=== PATIENT | male | born 1995 | race Caucasian/White ===

== ENCOUNTER 2017-11-19 11:38 | Emergency (ER) | payer BC ==
[2017-11-19 14:01] VITALS: BP 109/63
--- NOTE | 2017-11-19 14:38 | UC ---
Respiratory Complaint HPI - HPI Summary HPI Summary: Cough and congestion for about three weeks. He has a hx of asthma in the past. At night he is having chest tightness and pressure. his girlfriend's albuterol did help. No fever. Cough is productive at times. - History of Current Complaint Chief Complaint: UCGeneralIllness Stated Complaint: CONGESTION WHEEZING Time Seen by Provider: 11/19/17 14:25 Hx Obtained From: Patient Onset/Duration: Sudden Onset, Lasting Weeks Timing: Constant Severity Initially: Moderate Severity Currently: Moderate Character: Cough: Productive Aggravating Factors: Deep Breaths, Recumbent Position Alleviating Factors: Bronchodilator Associated Signs And Symptoms: Positive: Dyspnea, Wheezing, URI, Nasal Congestion. Negative: Fever, Chills, Hemoptysis, Dizziness, Calf Pain, Calf Swelling - Allergies/Home Medications Allergies/Adverse Reactions: Allergies Allergy/AdvReac Type Severity Reaction Status Date / Time No Known Allergies Allergy Verified 11/19/17 14:00 PMH/Surg Hx/FS Hx/Imm Hx Previously Healthy: No - asthma. - Surgical History Surgical History: None - Family History Known Family History: Positive: Other - related bronchitis history. - Social History Occupation: Employed Full-time Alcohol Use: Occasionally Substance Use Type: None Smoking Status (MU): Former Smoker - Immunization History Most Recent Influenza Vaccination: NOT CURRENT Review of Systems ENT: Sinus Congestion Respiratory: Cough All Other Systems Reviewed And Are Negative: Yes Physical Exam Triage Information Reviewed: Yes Appearance: Well-Appearing, No Pain Distress, Well-Nourished Vital Signs: Initial Vital Signs Temp 98.2 F 11/19/17 13:55 Pulse 66 11/19/17 13:55 Resp 18 11/19/17 13:55 BP 109/63 11/19/17 13:55 Pulse Ox 99 11/19/17 13:55 Vital Signs Reviewed: Yes Eyes: Positive: Conjunctiva Clear. Negative: Conjunctiva Inflamed ENT: Positive: Pharynx normal, Nasal congestion, TMs normal. Negative: Pharyngeal erythema, TM bulging, TM dull, TM red, Tonsillar swelling, Tonsillar exudate, Trismus, Muffled voice Neck: Positive: Supple, Nontender, No Lymphadenopathy Respiratory: Positive: Lungs clear, Normal breath sounds, No respiratory distress, No accessory muscle use. Negative: Respiratory distress, Decreased breath sounds, Accessory muscle use, Crackles, Rhonchi, Stridor, Wheezing Cardiovascular: Positive: No Murmur, Pulses Normal, Brisk Capillary Refill Abdomen Description: Positive: Nontender, No Organomegaly. Negative: Distended , Guarding Musculoskeletal: Positive: Strength Intact, ROM Intact, No Edema Neurological: Positive: Alert, Muscle Tone Normal. Negative: Fatigued Skin: Negative: rashes UC Diagnostic Evaluation - Laboratory O2 Sat by Pulse Oximetry: 99 Respiratory Course/Dx - Differential Dx/Diagnosis Provider Diagnoses: bronchitis with reactive airway disease. Discharge - Discharge Plan Condition: Good Disposition: HOME Prescriptions: Albuterol HFA INHALER* [Ventolin HFA Inhaler*] 1 - 2 puff INH Q4H PRN #1 mdi PRN Reason: Cough Azithromyxin BELGICA (NF) [Z-Belgica (Zithromax) 250 mg tabs #6] 2 tab PO .TODAY, THEN 1 DAILY #6 tab Methylprednisolone [Medrol Dosepak 4 MG*] 4 mg PO .SEE BELGICA INSTRUCTION #21 tab Spacer/Aerosol-Holding Chamber [Aerochamber Mv] 1 mis XX QID PRN #1 mis PRN Reason: Cough Patient Education Materials: Reactive Airways Disease (ED), Acute Bronchitis ( ED) Referrals: No Primary Care Phys,NOPCP [Primary Care Provider] - Additional Instructions: REturn here for any worsening.
== END 2017-11-19 14:52 | disposition home or self-care (01) ==
LOC: UCCORT 11:38
DX: J45.909 Unspecified asthma, uncomplicated (principal); Z79.899 Other long term (current) drug therapy; Z87.891 Personal history of nicotine dependence
CPT/HCPCS: 99202; G0463

== ENCOUNTER 2019-01-04 11:01 | Emergency (ER) | payer BC ==
[2019-01-04 12:03] VITALS: BP 148/79
--- NOTE | 2019-01-04 12:04 | UC ---
Eye Complaint HPI - HPI Summary HPI Summary: 23 yo male presents with b/l eye redness and drainage for the last 2 days. Says that for the last week he has been battling "cold symptoms" - runny nose and sinus congestion. Has been taking OTC dayquill/nyquill, which has helped. Denies fever, chills, sore throat, FB into eye. He does not wear contacts - History of Current Complaint Chief Complaint: UCEye Stated Complaint: BILAT EYE CONCERN, ST,CONGESTION,COUGH Time Seen by Provider: 01/04/19 12:04 Hx Obtained From: Patient Onset/Duration: Sudden Onset Timing: Constant Severity Initially: Mild Severity Currently: Mild Pain Intensity: 2 - Allergies/Home Medications Allergies/Adverse Reactions: Allergies Allergy/AdvReac Type Severity Reaction Status Date / Time No Known Allergies Allergy Verified 11/19/17 14:00 Home Medications: Home Medications D-Methorphan/PE/Acetaminophen [Day Time Cold-Flu Relief Liq] 1 each PO DAILY [History Confirmed 01/04/19] Ketotifen Fumarate [Eye Itch Relief] 1 each BOTH EYES Q6H 01/04/19 [History Confirmed 01/04/19] guaiFENesin [Mucinex] 600 mg PO DAILY 01/04/19 [History Confirmed 01/04/19] PMH/Surg Hx/FS Hx/Imm Hx - Additional Past Medical History Additional PMH: None - Surgical History Surgical History: None - Family History Known Family History: Positive: Other - related bronchitis history. - Social History Lives: With Family Alcohol Use: Occasionally Substance Use Type: None Smoking Status (MU): Former Smoker - Immunization History Most Recent Influenza Vaccination: NOT CURRENT Review of Systems All Other Systems Reviewed And Are Negative: Yes Constitutional: Positive: Negative Skin: Positive: Negative Eyes: Positive: Drainage, Eye Redness ENT: Positive: Nasal Discharge, Sinus Congestion Respiratory: Positive: Negative Cardiovascular: Positive: Negative Gastrointestinal: Positive: Negative Neurovascular: Positive: Negative Neurological: Positive: Negative Psychological: Positive: Negative Physical Exam - Summary Physical Exam Summary: GENERAL: WDWN. No pain distress. SKIN: No rashes, sores, lesions, or open wounds. HEENT: Head: AT/NC Eyes: EOM intact. PERRLA. B/L EYEs: Mild scleral injection. Conjunctiva with mild erythema and inflammation. Mild clear discharge. No FBs appreciated Nose: NTTP maxillary and frontal sinus. NECK: Supple. Nontender. No lymphadenopathy. CHEST: No accessory muscle use. Breathing comfortably and in no distress. CV: Pulses intact. Cap refill <2seconds NEURO: Alert. PSYCH: Age appropriate behavior. Triage Information Reviewed: Yes Vital Signs: Initial Vital Signs Temp 98.4 F 01/04/19 12:01 Pulse 88 01/04/19 12:01 Resp 15 01/04/19 12:01 BP 148/79 01/04/19 12:01 Pulse Ox 99 01/04/19 12:01 Vital Signs Reviewed: Yes Eye Complaint Course/Dx - Course Course Of Treatment: Conjunctivitis. - Differential Dx/Diagnosis Provider Diagnosis: Conjunctivitis Discharge - Sign-Out/Discharge Documenting (check all that apply): Patient Departure All imaging exams completed and their final reports reviewed: No Studies - Discharge Plan Condition: Stable Disposition: HOME Prescriptions: Polymyx/Trimethoprim OPTH* [Polytrim OPHTH*] 1 drop BOTH EYES QID #1 btl Patient Education Materials: Allergic Rhinitis (DC), Conjunctivitis (ED) Referrals: No Primary Care Phys,NOPCP [Primary Care Provider] - Additional Instructions: If you develop a fever, shortness of breath, chest pain, new or worsening symptoms - please call your PCP or go to the ED. Your blood pressure was mildly elevated at todays visit. Please see your primary provider within 4 weeks for recheck and re-evaluation. - Billing Disposition and Condition Condition: STABLE Disposition: Home
== END 2019-01-04 12:13 | disposition home or self-care (01) ==
LOC: UCCORT 11:01
DX: H10.9 Unspecified conjunctivitis (principal); Z87.891 Personal history of nicotine dependence
CPT/HCPCS: 99212; G0463